=== PATIENT | male | born 1945 | race Caucasian/White ===

== ENCOUNTER 2021-10-13 11:27 | Outpatient (CLI) | payer MEDICARE, OTHER, SELFPAY ==
--- NOTE | 2021-10-13 11:47 | CT_ITS ---
WS: [id number] Exam: CT angio chest PE protcl [id number] Date/Time of Exam: 10/13/2021 11:54 AM Reason For Exam: SYNCOPE DLP: 810.[address] scans at [facility] use at least one of these dose optimization techniques: automated e xposure control; mA and/or kV adjustment per patient size (includes targeted exams where dose is matc hed to clinical indication); or iterative reconstruction. Comparison 08/02/2017. No sign of acute PE. The thoracic aorta is normal in caliber. No mediastinal or hilar lymphadenopathy . No pleural or pericardial effusion.2 the lungs are clear and fully expanded. The airway is patent. No destructive bone changes. The chest wall is intact. Atrophy of the left pectoralis muscle. CT sect ions the upper abdomen are unremarkable. CT/CT angio chest PE protcl [id number] IMPRESSION: 1. No sign of acute PE or other significant finding in the chest.
[2021-10-13 12:17] LABS: Blood Urea Nitrogen 9 mg/dL (8-23)
[2021-10-13] MEDS: iohexol 350 mg/mL 100 mL Btl IV (16:25)
== END 2021-10-13 11:28 | disposition home or self-care (01) ==
PROVIDERS: PCP Family Medicine; Visit Provider Family Medicine
DX: R55 Syncope and collapse (principal)
CPT/HCPCS: 71275; 82565; 84520; Q9967

== ENCOUNTER 2022-05-13 06:47 | Outpatient (CLI) | payer MEDICARE, OTHER, SELFPAY ==
--- NOTE | 2022-05-13 07:20 | MR_ITS ---
WS: [id number] MRI LUMBAR SPINE NONCONTRAST HISTORY: LUMBAR BACK PAIN W/RADICULOPATHY, low back and LEFT hip pain for years. COMPARISON: None available. TECHNIQUE: Sagittal and axial multisequence imaging is submitted. Mild diffuse thoracic and cervical spondylitic changes with disc disease. No cord compression. Very mild straightening of the normal lumbar lordosis. There is a small amount of reactive marrow scotty ma within the adjacent endplates of L1 and L2. Disc spaces are moderately narrowed throughout. No lumbar spine fracture. Conus terminates normally at L1. L1-L2: Mild annular disc bulging and osteophytic ridging. No stenosis. L2-L3: Mild annular disc bulging and osteophytic ridging. Asymmetric facet joint arthritis, most sign ificant on the LEFT with slight encroachment into the LEFT lateral thecal sac and foramen. Mild LEFT foraminal stenosis. L3-L4: Mild annular disc bulge with encroachment upon the ventral thecal sac. There is slight contact on the traversing L4 nerve roots but no high-grade stenosis. Moderate ligamentum flavum and facet ar thritis. Mild bilateral foraminal stenosis. L4-L5: Mild annular disc bulging with a very shallow central disc protrusion. Moderate facet joint ar thritis. Mild bilateral foraminal stenosis. L5-S1: Mild bilateral facet joint arthritis. Mild osteophytic ridging around the vertebral bodies enc roaching into the thecal sac. There is a small osteophyte contacting the RIGHT exiting L5 nerve root. Mild bilateral foraminal stenosis. Several cysts associated with the LEFT kidney. Largest incompletely visualized measures at least 6.4 x 5.2 cm. MR/MR lumbar spine wo con* [id number] IMPRESSION: 1. Multilevel moderate disc space narrowing throughout. 2. No high-grade central or foraminal stenosis. 3. Significant facet joint arthritis on the LEFT at L2-3 with slight encroachm ent into the LEFT lateral thecal sac with only mild LEFT foraminal stenosis. 4. Mild bilateral foraminal stenosis from L3-4 to L5-S1.
== END 2022-05-13 06:48 | disposition home or self-care (01) ==
LOC: RAD 06:47
PROVIDERS: PCP Family Medicine; Visit Provider Family Medicine
DX: M54.16 Radiculopathy, lumbar region (principal); M25.552 Pain in left hip; M48.061 Spinal stenosis, lumbar region without neurogenic claudication; M48.07 Spinal stenosis, lumbosacral region; M47.816 Spondylosis without myelopathy or radiculopathy, lumbar region
CPT/HCPCS: 72148

== ENCOUNTER 2022-09-28 08:43 | Outpatient (CLI) | payer MEDICARE, OTHER, SELFPAY ==
--- NOTE | 2022-09-28 09:02 | MM_ITS ---
WS: [id number] Bilateral diagnostic 3D tomosynthesis digital mammogram, 09/28/2022 Clinical Data: LEFT BREAST LUMP Comparison: Bilateral mammogram, 12/02/2008. Findings: The right breast is normal. The left breast shows slightly increased tissue density compared to the r ight. However the tissue density has diminished greatly compared to the prior mammogram. There is a m arker over the site of the sensitive region. There are no spiculated masses or clustered calcificatio ns. There are no secondary signs of carcinoma. MM/[place] [id number] Impression: 1. Negative right breast mammogram. 2. Slightly increased tissue in the left breast but it has diminished compared to 14 years ago. 3. Left breast ultrasound will be performed. BIRADS: 2-Benign FOLLOW UP: See Report The CAD drawing checker was used.
--- NOTE | 2022-09-28 09:02 | US_ITS ---
WS: [id number] Left breast ultrasound, 09/28/2022 Clinical Data: LUMP LT BREAST Comparison: Left breast ultrasound, 12/02/2008. Findings: No spiculated masses or clustered calcifications are seen. There are no secondary signs of carcinoma. Only normal tissue could be seen. The ultrasound was localized 5 cm from the nipple at the site of t he possible nodule. US/US breast LT limited* [id number] Impression: Negative left breast ultrasound and clinical follow-up is recommended. BIRADS: 1-Negative FOLLOW UP: See Report
== END 2022-09-28 08:44 | disposition home or self-care (01) ==
LOC: RAD 08:48
PROVIDERS: PCP Family Medicine; Visit Provider Family Medicine
DX: N63.25 Unspecified lump in the left breast, overlapping quadrants (principal)
CPT/HCPCS: 76642; 77062; G0279

== ENCOUNTER → 2024-11-08 10:26 | Outpatient (BNVA) | payer MEDICARE, OTHER, SELFPAY | PROVIDERS: PCP Family Medicine; Visit Provider Family Medicine | DX: M54.16 Radiculopathy, lumbar region (principal); E03.9 Hypothyroidism, unspecified; Z00.00 Encounter for general adult medical examination without abnormal findings; R53.83 Other fatigue; Z79.01 Long term (current) use of anticoagulants | CPT/HCPCS: 80053; 80061; 82607; 84443; 85025 ==

== ENCOUNTER 2024-11-17 08:25 | Observation (INO) | payer MEDICARE, OTHER, SELFPAY ==
[2024-11-17] VITALS (36 sets, daily range): BP systolic 134–155; BP diastolic 74–100; PULSE 69–88; RESP 15–25; TEMP 36.7–36.9; O2SAT 91–99; BMI 32.2
--- NOTE | 2024-11-17 08:50 | CTR_ITS ---
PROCEDURE INFORMATION: Exam: CT Head Without Contrast Exam date and time: 11/17/2024 8:57 AM Age: 79 years old Clinical indication: Injury or trauma; Fall; Blunt trauma (contusions or hematomas); Additional info: Closed head injury, trauma TECHNIQUE: Imaging protocol: Computed tomography of the head without contrast. Radiation optimization: All CT scans at this facility use at least one of these dose optimization techniques: automated exposure control; mA and/or kV adjustment per patient size (includes targeted exams where dose is matched to clinical indication); or iterative reconstruction. COMPARISON: No relevant prior studies available. RADIATION DOSE METRICS: Total DLP (mGy-cm): 1125 FINDINGS: Brain: Mild parenchymal volume loss. Subcortical hypodensity, nonspecific, but likely to be chronic small vessel ischemic change in a patient of this age group. Cerebral ventricles: No ventriculomegaly. Paranasal sinuses: Visualized sinuses are unremarkable. No fluid levels. Mastoid air cells: Visualized mastoid air cells are well aerated. Bones: Unremarkable. No acute fracture. Soft tissues: Unremarkable. Vasculature: Intracranial atherosclerotic calcifications. Lpji-slxeebs-dshb-right MCA atherosclerotic calcification. CT/CT head wo con* [id number] IMPRESSION: No acute intracranial abnormality.
--- NOTE | 2024-11-17 10:17 | XRR_ITS ---
PROCEDURE INFORMATION: Exam: XR Chest Exam date and time: 11/17/2024 10:25 AM Age: 79 years old Clinical indication: Cough and dyspnea; Additional info: Dyspnea/cough TECHNIQUE: Imaging protocol: Radiologic exam of the chest. Views: 1 view. COMPARISON: CT angio chest PE protcl [id number] 10/13/2021 12:02 PM FINDINGS: Lungs: Mild hypoinflation. No focal consolidation. Pleural spaces: Unremarkable. No pleural effusion. No pneumothorax. Heart/Mediastinum: Cardiomegaly. Vasculature: Tortuous calcified aorta. Bones/joints: Degenerative change of the visualized thoracic spine and bilateral shoulders. XR/XR chest 1V portable [id number] IMPRESSION: No acute cardiopulmonary findings.
--- NOTE | 2024-11-17 10:17 | ECG_ITS ---
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 Measurements Intervals [place] Rate: 67 P: 77 CO: 194 QRS: 34 QRSD: 108 T: 44 QT: 423 QTc: 449 Interpretive Statements SINUS RHYTHM NONSPECIFIC T-WAVE ABNORMALITY Compared to ECG 08/02/2017 17:07:41 T-wave abnormality now present Electronically Signed On 11-17-2024 22:59:47 READING SPECIALIST by Juan Antonio Mckeon M.D. [email or web address]
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
--- NOTE | 2024-11-17 11:26 | ECG_ITS ---
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 Measurements Intervals [place] Rate: 68 P: 0 SC: 0 QRS: 47 QRSD: 105 T: 53 QT: 383 QTc: 409 Interpretive Statements SUPRAVENTRICULAR RHYTHM MODERATE ST DEPRESSION [0.05+ mV ST DEPRESSION] Compared to ECG 08/02/2017 17:07:41 Supraventricular rhythm now present ST (T wave) deviation now present Sinus rhythm no longer present Electronically Signed On 11-17-2024 23:22:33 EARLY CHILDHOOD COORDINATOR by Juan Antonio Mckeon M.D. [id number]
[2024-11-17 11:31] LABS: Basophils % 0.8 %; Eosinophils % 0.8 %; Hematocrit 51.6 % (37-53); Lymphocytes # 1.3 10^3/uL (0.8-4.8); Lymphocytes % 26.2 %; Mean Corpuscular HGB Conc 33.7 g/dL (30-55); Mean Corpuscular Hemoglobin 30.5 pg (27-33); Mean Corpuscular Volume 90.5 fl (82-101); Mean Platelet Volume 9.5 fL (7.4-10.4); Monocytes # 0.6 10^3/uL (0.2-0.9); Monocytes % 11.5 %; Neutrophils # 3.01 10^3/uL (1.8-7.7); Neutrophils % 60.5 %; Nucleated Red Blood Cells % 0 %; Platelet Count 184 10^3/cmm (157-399); Red Cell Distribution Width 12.6 % (12.1-15.1); White Blood Count 4.97 10^3/uL (3.29-11.43)
[2024-11-17 11:36] LABS: Erythrocyte Sedimentation Rate 4 mm/hr (0-10)
[2024-11-17 11:52] LABS: Troponin(5th) Baseline 13 ng/L (0-15)
[2024-11-17 11:56] LABS: Alanine Aminotransferase 26 U/L (0-41); Albumin Level 4.5 g/dL (3.5-5.2); Alkaline Phosphatase 78 U/L (40-130); Anion Gap 16.4 (5-19); Aspartate Amino Transferase 25 U/L (0-40); Blood Urea Nitrogen 11 mg/dL (8-23); C Reactive Protein 5.5 mg/L (0.0-4.9); Calcium 9.6 mg/dL (8.5-10.5); Carbon Dioxide 24 mmol/L (22-29); Chloride 101 mmol/L (98-107); Creatinine Clr Calc Pharmacy 106.6524; Glucose 103 mg/dL (65-115); Osmolality Calculated 284 mOsm/kg (285-295); Potassium 4.4 mmol/L (3.5-5.1); Sodium 137 mmol/L (136-145); Total Bilirubin 1.6 mg/dL (0.15-1.2); Total Protein 6.5 g/dL (6.6-8.7)
[2024-11-17 11:58] LABS: Ammonia 22 umol/L (16-60)
[2024-11-17 12:02] LABS: Procalcitonin 0.06 ng/mL (0-0.5)
--- NOTE | 2024-11-17 12:07 | PM.HP ---
Providers/Chief Complaint Admitting Physician: Florentin Sherman MD Primary Care Provider: Simeon Nick DO Chief Complaint: post fall History of Present Illness Donn Zuleta is a 79 year old male with a past medical history of prostate cancer, status post radical prostatectomy, history of anal sphincterectomy with an artificial sphincter, left hip traumatic hematoma with subcutaneous mass, history of tularemia, history of pulmonary embolism degenerative disc disease who presents [facility] due to shortness of breath, weakness, fatigue, syncopal-like symptoms.The patient, an elderly individual, presented to the hospital with a headache rated as a 7 out of 10 on the pain scale, following a fall. The family doctor advised hospital evaluation if the patient experienced a headache or confusion due to concerns about a potential brain bleed. The patient reported that a recent CT scan showed no bleeding. The fall occurred while walking with a stick and a dog, during which the patient experienced a loss of control over their legs, leading to a collapse without losing consciousness. The patient has experienced a total lack of energy, which has progressively worsened, and has fallen three times in the last few months. 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 The patient has undergone various pain management treatments, including injections and femoral nerve blockage, but no major back or hip surgeries. The patient has a history of prostate cancer treated with robotic surgery and an artificial sphincter placement, resulting in severe incontinence. The patient denies chest pain, SOB, smoking, alcohol, and drug use. Patient reports that whenever he exerts himself up his driveway, he has these episodes of which he always has presyncopal like symptoms but never really passes out, but typically occurs with exertion, episodes have been coming more frequently this is why he fell. When he was exerting himself he had this episode of presyncopal symptom, shortness of breath resulting in a fall. No chest pain, no nausea, no vomiting, no diaphoresis. Review of Systems Const: Denies: fever(s) Card: Denies: chest pain Resp: Denies: dyspnea GI: Denies: abdominal pain Neuro: Denies: headache(s), numbness in extremities or weakness in extremities Medications/Allergies Home Medications Medication Instructions Recorded Confirmed Last Taken Type apixaban 5 mg tablet (Eliquis) 5 mg PO BID #180 tabs 04/09/24 11/17/24 11/17/24 Rx atorvastatin 10 mg tablet 10 mg PO DAILY #90 tabs 04/16/24 11/17/24 11/17/24 Rx hydrocodone 5 mg-acetaminophen 325 1 tab PO BID PRN pain 4 weeks #60 11/08/24 11/17/24 Unknown Rx mg tablet tabs Allergies Allergy/AdvReac Type Severity Reaction Status Date / Time No Known Allergies Allergy Unverified 11/15/24 12:22 PFSH Acute PFSH: Medical History (Updated 11/17/24 @ 12:18 by Florentin Sherman MD) Urinary incontinence History of pulmonary embolism Lumbar radiculopathy, chronic Surgical History (Updated 11/17/24 @ 12:16 by Florentin Sherman MD) History of prostatectomy Social History (Updated 11/17/24 @ 12:17 by Florentin Sherman MD) Smoking and tobacco/nicotine status: never used tobacco/nicotine Alcohol intake: never Substance/Drug Use: never Vitals/I&O/Wt Last Vital Signs Temp 98.0 F 11/17/24 08:36 Pulse 76 11/17/24 11:49 Resp 17 11/17/24 08:36 BP 148/74 11/17/24 11:49 Pulse Ox 99 11/17/24 11:49 O2 Del Method Room Air 11/17/24 09:44 Weight last 48 hrs Weight 117.027 kg Physical Exam Const: COMMON NORMALS: no acute distress and patient oriented x3 OTHER: Left temporal, superficial bruising, area of bruising and scarring from fall HENMT: COMMON NORMALS: normocephalic HEAD & SCALP: normocephalic Eye: COMMON NORMALS: Equal, round and reactive pupils present Neck/C-Spine: COMMON NORMALS: no JVD Resp: COMMON NORMALS: normal respiratory effort, No retractions, No use of accessory muscles and clear to auscultation bilaterally AUSCULTATION: clear to auscultation bilaterally Cardio: COMMON NORMALS: no JVD, regular rate, regular rhythm, S1 normal heart sound present and S2 normal heart sound present RATE: regular rate RHYTHM: regular rhythm HEART SOUNDS: S1 normal heart sound present and S2 normal heart sound present GI: COMMON NORMALS: Normal to inspection, nondistended, normoactive bowel sounds present, Soft to palpation, non-tender, No hepatosplenomegaly present, no masses and no bruits PALPATION: Yes Soft to palpation and Yes No hepatosplenomegaly present Extremity: COMMON NORMALS: no calf tenderness and no pedal edema Neuro: COMMON NORMALS: patient oriented x3, CN's II-XII intact bilaterally and moves all extremities Psych: COMMON NORMALS: mental status grossly normal Data 11/17/24 11:16 11/17/24 11:16 A&P Assessment and plan (1) Pre-syncope: Plan Presyncope -neurocheck, nih, ptot ? With weakness, fatigue, shortness of breath, ? Plan ? CBC, CMP, troponin series, telemetry, cardiac echo ? Does have hyperbilirubinemia, fractionated bilirubin, GGT, lipase ? Does have erythrocytosis, UA, EPO levels ? Obtain a UA, history of chronic incontinence -ct chest abdomen and pelvis ? Eliquis for DVT prophylaxis -full code Attestations Medical Necessity Statement*: Patient requires hospitalization, outpatient with observation , presyncope Diagnoses Pre-syncope R55
--- NOTE | 2024-11-17 12:16 | USCV_ITS ---
Donn Zuleta Age: 79 Gender: M : 1945 Exam Date: 11/17/2024 15:59 Ordering Phys: Florentin Sherman MD Technologist: Clif Patterson Exam Location: [facility] [place] Indication: syncope BP: 148 / 74 HR: 68 Rhythm: Sinus Technical Quality: Adequate MEASUREMENTS (Male / Female) Normal Values 2D ECHO LV Diastolic Diameter PLAX 4.1 cm 4.2 - 5.9 / 3.9 - 5.3 cm IVS Diastolic Thickness 1.2 cm 0.6 - 1.0 / 0.6 - 0.9 cm IVS Systolic Thickness 1.2 cm LVPW Diastolic Thickness 1.7 cm 0.6 - 1.0 / 0.6 - 0.9 cm LVPW Systolic Thickness 2.8 cm LVOT Diameter 2.0 cm LV Ejection Fraction 2D Teich 79.2 % LV Ejection Fraction MOD 4C 74.1 % LV Ejection Fraction MOD 2C 65.3 % LV Ejection Fraction 2C AL 65.0 % LA Diameter 3.2 cm RA Systolic Volume 4C AL 78.9 ml RA Systolic Volume 4C MOD 85.1 ml LA Sys Volume AL 63.9 cm cubed LA Sys Volume Index AL 25.4 cm cubed/m squared Aorta at Sinotubular Diameter 3.0 cm M-MODE LA Ao Ratio MM 1.1 AV Cusp Separation MM 1.5 cm DOPPLER AV Peak Velocity 98.0 cm/s LVOT Peak Velocity 83.0 cm/s AV Area Cont Eq vti 2.6 cm squared AV Area Cont Eq pk 2.7 cm squared MV Peak Velocity 82.0 cm/s MV Area PHT 4.7 cm squared Mitral E to A Ratio 0.7 TV Peak Velocity 201.0 cm/s TR Peak Velocity 202.0 cm/s TR Peak Gradient 16.3 mmHg TR Mean Velocity 154.0 cm/s TR Mean Gradient 10.3 mmHg TR Velocity Time Integral 49.8 cm PV Peak Velocity 125.7 cm/s RV Ejection Time 0.3 s FINDINGS Left Ventricle Left ventricle is normal in size. LV systolic function is normal with EF of 55-60%. No regional wall motion abnormalities are seen. Grade 1 diastolic dysfunction Right Ventricle Normal in size and function Right Atrium Dilated Left Atrium Normal in size Mitral Valve Structurally normal mitral valve. Trace mitral regurgitation Aortic Valve Structurally normal aortic valve. No significant stenosis. Trace aortic regurgitation Tricuspid Valve Insufficient TR jet to calculate RVSP Pulmonic Valve Not well visualized Pericardium Normal Aorta Normal in size IVC Not well visualized CONCLUSIONS LV systolic function is normal with EF of 55-60% Grade 1 diastolic dysfunction Right atrial dilation Trace mitral regurgitation Trace aortic regurgitation Juan Antonio Mckeon MD (Electronically Signed) Final Date: 18 November 2024 09:47 S
--- NOTE | 2024-11-17 12:20 | CTR_ITS ---
PROCEDURE INFORMATION: Exam: CT Chest Without Contrast; Diagnostic Exam date and time: 11/17/2024 2:35 PM Age: 79 years old Clinical indication: Other: Weakness, fatigue, erythrocytosis TECHNIQUE: Imaging protocol: Diagnostic computed tomography of the chest without contrast. Radiation optimization: All CT scans at this facility use at least one of these dose optimization techniques: automated exposure control; mA and/or kV adjustment per patient size (includes targeted exams where dose is matched to clinical indication); or iterative reconstruction. COMPARISON: CT angio chest PE protcl [id number] 10/13/2021 12:02 PM RADIATION DOSE METRICS: Total DLP (mGy-cm): 1219.99 FINDINGS: Lungs: No focal consolidation. 5 mm solid nodule at the left upper lobe (series 4, image 43). Calcified granuloma. Dependent atelectasis. Pleural spaces: Unremarkable. No pneumothorax. No pleural effusion. Heart: Unremarkable. No cardiomegaly. No pericardial effusion. Coronary arteries: Coronary artery calcifications. Lymph nodes: . Calcified hilar lymph nodes on the left. Vasculature: Atherosclerotic calcifications of the thoracic aorta. Bones/joints: Unremarkable. No acute fracture. Soft tissues: Unremarkable. PROCEDURE INFORMATION: Exam: CT Abdomen And Pelvis Without Contrast Exam date and time: 11/17/2024 2:35 PM Age: 79 years old Clinical indication: Other: Weakness, fatigue, erythrocytosis TECHNIQUE: Imaging protocol: Computed tomography of the abdomen and pelvis without contrast. Radiation optimization: All CT scans at this facility use at least one of these dose optimization techniques: automated exposure control; mA and/or kV adjustment per patient size (includes targeted exams where dose is matched to clinical indication); or iterative reconstruction. COMPARISON: MR lumbar spine wo con* [id number] 05/13/2022 7:43 AM RADIATION DOSE METRICS: Total DLP (mGy-cm): 1219.99 FINDINGS: Liver: Hepatic steatosis. Gallbladder and biliary ducts: Normal. No calcified stones. No ductal dilation. Pancreas: Normal. No ductal dilation. Spleen: Large calcification at the posterior spleen. Adrenal glands: Normal. No mass. Kidneys and ureters: Normal. No hydronephrosis. Stomach and bowel: Unremarkable. No obstruction. No mucosal thickening. Appendix: No evidence of appendicitis. Intraperitoneal space: Unremarkable. No free air. No significant fluid collection. Vasculature: Unremarkable. No abdominal aortic aneurysm. Lymph nodes: Unremarkable. No enlarged lymph nodes. Urinary bladder: Unremarkable as visualized. Reproductive: Status post prostatectomy. Bones/joints: Diffuse idiopathic skeletal hyperostosis. Diffuse degenerative disease of the thoracolumbar spine. Soft tissues: Unremarkable. CT/[place] [id number] IMPRESSION: 1. No acute cardiopulmonary findings. 2. Left upper lobe solid nodule measuring 5 mm. In a low risk individual no routine follow-up is required. In a high-risk individual optional CT at 12 months can be considered. 3. Coronary artery calcifications. IMPRESSION: 1. No acute abdominopelvic abnormality. 2. Hepatic steatosis. 3. Findings of prior granulomatous disease.
[2024-11-17 13:01] LABS: Estmated Average Glucose 120; Gamma Glutamyl Transferase 24 U/L (8-61); Hemoglobin A1C 5.8 % (4.0-6.0); Total Bilirubin 1.5 mg/dL (0.15-1.2)
[2024-11-17 13:10] LABS: Lipase 28 U/L (13-60); NT Pro B Type Natriuretic Pept < 36 pg/mL (0-450)
[2024-11-17] MEDS: pantoprazole 40 mg SDV IVP (13:49)
[2024-11-17] MEDS: aspirin 81 mg EC Tablet PO (13:49)
--- NOTE | 2024-11-17 13:59 | PC.OT ---
Patient is indep in all adls,was seen ambulating n the [facility] independently. discussd with nursing and PT STAFF. HE willnot need occupatonal therapy services at this time. OT EVAL NOT INDICATED AT THIS TIME
[2024-11-17 14:25] LABS: Troponin 5 2HR 11.08 ng/L (0-15); Troponin 5 2HR Delta -1.92 ABS# (0-10)
--- NOTE | 2024-11-17 17:18 | ECG_ITS ---
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 Measurements Intervals [place] Rate: 68 P: 54 WI: 209 QRS: 20 QRSD: 111 T: 24 QT: 395 QTc: 423 Interpretive Statements SINUS RHYTHM INCOMPLETE RIGHT BUNDLE BRANCH BLOCK [90+ ms QRS DURATION, TERMINAL R IN V1/V2, 40+ ms S IN I/aVL/V4/V5/V6] Compared to ECG 11/17/2024 11:38:14 Incomplete right bundle-branch block now present T-wave abnormality no longer present Electronically Signed On 11-17-2024 23:20:58 COMMUNICATIONS STRATEGIST by Juan Antonio Mckeon M.D. [email or web address]
[2024-11-17] MEDS: apixaban 5 mg Tablet PO (17:49)
[2024-11-17 18:41] LABS: Bilirubin Urine Negative (Negative); Blood Urine Negative (Negative); Glucose Urine UA Negative (Normal); Ketones Urine Negative (Negative); Leukocyte Esterase Urine Negative (Negative); Nitrate Urine Negative (Negative); Protein Urine Negative (Negative); Specific Gravity, Urine 1.007 (1.005-1.030); Urine Appearance Clear (CLEAR); Urine Color Yellow (Yellow); Urobilinogen Urine 0.2 mg/dL (Negative)
[2024-11-17 18:43] LABS: Add Urine Microscopic? YES; Bacteria Urine None Seen /hpf; Hyaline Casts Urine 0-4 /lpf; RBC Urine 0-2 /hpf (0-2); Squamous Epithelial Cell Urine 0-5 /hpf (0-5); WBC Urine 0-5 /hpf (0-5)
[2024-11-17 18:52] LABS: Troponin 5 6HR 11.95 ng/L (0-15)
[2024-11-17 18:55] LABS: Troponin 5 6HR Delta -1.05 ng/L (0-12)
[2024-11-18] VITALS (7 sets, daily range): BP systolic 129–156; BP diastolic 80–95; PULSE 73–120; RESP 16–20; TEMP 36.9; O2SAT 92–95
[2024-11-18 02:49] LABS: Basophils # 0.1 10^3/uL (0.0-0.1); Basophils % 1.2 %; Eosinophils # 0.1 10^3/uL (0.0-0.8); Eosinophils % 1.6 %; Hematocrit 49.4 % (37-53); Lymphocytes # 1.3 10^3/uL (0.8-4.8); Lymphocytes % 25.5 %; Mean Corpuscular HGB Conc 33.6 g/dL (30-55); Mean Corpuscular Volume 92.3 fl (82-101); Mean Platelet Volume 10.2 fL (7.4-10.4); Monocytes # 0.5 10^3/uL (0.2-0.9); Monocytes % 9.7 %; Neutrophils # 3.12 10^3/uL (1.8-7.7); Neutrophils % 61.8 %; Nucleated Red Blood Cells % 0 %; Platelet Count 162 10^3/cmm (157-399); Red Blood Count 5.35 10^6/uL (3.85-5.65); Red Cell Distribution Width 12.5 % (12.1-15.1); White Blood Count 5.05 10^3/uL (3.29-11.43)
[2024-11-18 03:11] LABS: Albumin Level 3.8 g/dL (3.5-5.2); Alkaline Phosphatase 68 U/L (40-130); Blood Urea Nitrogen 11 mg/dL (8-23); Calcium 9.1 mg/dL (8.5-10.5); Carbon Dioxide 24 mmol/L (22-29); Chloride 102 mmol/L (98-107); Creatinine Clr Calc Pharmacy 106.6524; Globulin 2.4 g/dL (1.3-4.6); Glucose 101 mg/dL (65-115); Osmolality Calculated 282 mOsm/kg (285-295); Sodium 136 mmol/L (136-145); Total Bilirubin 1.6 mg/dL (0.15-1.2); Total Protein 6.2 g/dL (6.6-8.7)
[2024-11-18 03:14] LABS: Alanine Aminotransferase 25 U/L (0-41); Anion Gap 14.3 (5-19); Aspartate Amino Transferase 28 U/L (0-40); Potassium 4.3 mmol/L (3.5-5.1)
--- NOTE | 2024-11-18 08:26 | P.CONIM_ITS ---
Providers/Reason For Consult 2 Consulting Physician/Specialty*: Juan Antonio Mckeon MD/ Cardiology Reason for Consult*: Falls Requesting Physician: Dr Fuller Attending Physician: Florentin Sherman MD Primary Care Provider: Simeon Nick DO History of Present Illness History of Present Illness Donn Zuleta is a 79 year old male with past medical history of PE who was admitted to hospital after having falls. He says he has not lost consciousness however he feels very weak in the legs and has had at least 3 falls recently. No chest pain. Has some shortness of breath. Blood pressure is controlled.ECHO shows normal LV systolic function. Review of Systems 2 Const: Denies: fever(s) or chills Card: Reports: dyspnea on exertion; Denies: chest pain Resp: Denies: dyspnea GI: Denies: abdominal pain : Denies: dysuria, urinary frequency or urinary urgency Musc: Denies: neck pain or back pain Skin/Breast: Denies: rash Medications/Allergies Home Medications Medication Instructions Recorded Confirmed Last Taken Type apixaban 5 mg tablet (Eliquis) 5 mg PO BID #180 tabs 04/09/24 11/20/24 11/17/24 Rx atorvastatin 10 mg tablet 10 mg PO DAILY #90 tabs 04/16/24 11/20/24 11/17/24 Rx cyclobenzaprine 10 mg tablet 10 mg PO TID 11/20/24 11/20/24 Unknown History Allergies Allergy/AdvReac Type Severity Reaction Status Date / Time No Known Allergies Allergy Verified 11/20/24 07:58 Current Medications Generic Name Dose Route Start Last Admin Trade Name Freq PRN Reason Stop Dose Admin Apixaban 5 mg 11/17/24 18:00 11/17/24 17:49 Apixaban 5 Mg Tablet PO 5 mg BID CORIN Administration Aspirin 81 mg 11/17/24 12:16 11/17/24 13:49 Aspirin 81 Mg Ec Tablet PO 81 mg DAILY CORIN Administration Pantoprazole Sodium 40 mg 11/17/24 12:16 11/17/24 13:49 Pantoprazole 40 Mg Sdv IVP 40 mg Q24H CORIN Administration PFSH Acute 2 PFSH: Medical History Urinary incontinence History of pulmonary embolism Lumbar radiculopathy, chronic Surgical History History of prostatectomy Social History Smoking and tobacco/nicotine status: former use of tobacco/nicotine Alcohol intake: never Substance/Drug Use: never Vitals/I&O/Wt Last Vital Signs Temp 98.4 F 11/18/24 08:00 Pulse 91 11/18/24 08:00 Resp 18 11/18/24 08:00 BP 143/95 11/18/24 08:00 Pulse Ox 95 11/18/24 08:00 O2 Del Method Room Air 11/18/24 08:00 Weight last 48 hrs Weight 258 lb 6.4 oz Weight 258 lb Weight 258 lb Physical Exam 2 Narrative: GENERAL: Patient is alert, awake and oriented x3. [] NECK: No jugular vein distension. [] HEENT: No cyanosis. No icterus. No pallor. [] HEART: Regular S1 and S2. No murmur, rub or gallop. [] LUNGS: Clear to auscultate bilaterally. [] CENTRAL NERVOUS SYSTEM: Grossly nonfocal. [] EXTREMITIES: Lower extremities with 1+ edema bilaterally Data 11/18/24 02:00 11/18/24 02:00 A&P Assessment and plan (1) Pre-syncope: Plan No evidence of arrhythmias/pauses telemetry. EKG shows normal sinus rhythm with incomplete right branch block. Will recommend ordering event monitor as outpatient. May need stress test. Patient is going to follow up with neurology. Outpatient cardiology follow up. Consult Attestations 2 Medical Necessity Statement: Care expected to cross 2 midnights. Coding Level of Care Code Acute Code for Chg Fwd Diagnoses Pre-syncope R55
[2024-11-18] MEDS: apixaban 5 mg Tablet PO (08:56)
[2024-11-18] MEDS: aspirin 81 mg EC Tablet PO (08:56)
--- NOTE | 2024-11-18 10:49 | USR_ITS ---
PROCEDURE INFORMATION: Exam: US Duplex Bilateral Extracranial Arteries; Complete; Carotid Arteries Exam date and time: 11/18/2024 11:17 AM Age: 79 years old Clinical indication: Syncope and collapse; Additional info: Presyncope TECHNIQUE: Imaging protocol: Real-time duplex ultrasound scan of the bilateral extracranial arteries combining pittman scale, color Doppler and spectral waveform analysis with image documentation. Complete exam. Exam focused on the carotid arteries. COMPARISON: CT head wo con* [id number] 11/17/2024 8:57 AM FINDINGS: Right common carotid artery: Unremarkable. No occlusion or stenosis. Waveforms are normal. Right internal carotid artery: Unremarkable. No occlusion or stenosis. Waveforms are normal. Right ICA/CCA ratio: Within normal limits measuring 0.9. Right external carotid artery: No stenosis in the origin. Right vertebral artery: Unremarkable. Antegrade flow. Left common carotid artery: Unremarkable. No occlusion or stenosis. Waveforms are normal. Left internal carotid artery: Unremarkable. No occlusion or stenosis. Waveforms are normal. Left ICA/CCA ratio: Within normal limits measuring 0.8. Left external carotid artery: No stenosis in the origin. Left vertebral artery: Unremarkable. Antegrade flow. US/CV carotid duplex BI* [id number] IMPRESSION: No carotid arterial stenosis. REFERENCES: SRU CRITERIA. The degree of internal carotid artery stenosis is based on criteria defined by the Society of Radiologists in Ultrasound (SRU). Normal is no stenosis. Mild is less than 50% stenosis. Moderate is 50-69% stenosis. Severe is greater than 69% stenosis to near occlusion. Near occlusion is a markedly narrowed lumen. Total occlusion is no detectable patent lumen.
--- NOTE | 2024-11-18 10:53 | PM.DCS ---
Discharge Providers Date of Admission: 11/17/24 10:56 Date of Discharge: November 18, 2024 Attending Provider at Admission: Florentin Sherman MD Attending Provider at Discharge: Florentin Sherman MD Primary Care Provider: Simeon Nick DO Diagnoses at Discharge Discharge Diagnosis (1) Pre-syncope: Status: Acute Reason for Visit Reason for Visit: post fall Hospital Course Hospital Course Donn Zuleta is a 79 year old male with a past medical history of prostate cancer, status post radical prostatectomy, history of anal sphincterectomy with an artificial sphincter, left hip traumatic hematoma with subcutaneous mass, history of tularemia, history of pulmonary embolism degenerative disc disease who presents [facility] due to shortness of breath, weakness, fatigue, syncopal-like symptoms.The patient, an elderly individual, presented to the hospital with a headache rated as a 7 out of 10 on the pain scale, following a fall. The family doctor advised hospital evaluation if the patient experienced a headache or confusion due to concerns about a potential brain bleed. The patient reported that a recent CT scan showed no bleeding. The fall occurred while walking with a stick and a dog, during which the patient experienced a loss of control over their legs, leading to a collapse without losing consciousness. The patient has experienced a total lack of energy, which has progressively worsened, and has fallen three times in the last few months. 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 The patient has undergone various pain management treatments, including injections and femoral nerve blockage, but no major back or hip surgeries. The patient has a history of prostate cancer treated with robotic surgery and an artificial sphincter placement, resulting in severe incontinence. The patient denies chest pain, SOB, smoking, alcohol, and drug use. Patient reports that whenever he exerts himself up his driveway, he has these episodes of which he always has presyncopal like symptoms but never really passes out, but typically occurs with exertion, episodes have been coming more frequently this is why he fell. When he was exerting himself he had this episode of presyncopal symptom, shortness of breath resulting in a fall. No chest pain, no nausea, no vomiting, no diaphoresis. Patient was admitted to [facility] for presyncopal symptoms, associate with exertion -CT head no acute findings -See CT chest abdomen pelvis no acute findings -CBC, CMP, electrolytes no acute findings -Cardiac echo CONCLUSIONS LV systolic function is normal with EF of 55-60% Grade 1 diastolic dysfunction Right atrial dilation Trace mitral regurgitation Trace aortic regurgitation -Carotid ultrasound no acute findings -Orthostatics within normal limits -Serial kidneys, short troponins, telemetry monitoring no acute findings -Patient will be discharged with event monitor in place -Follow-up with cardiology stress testing -Patient was advised if he were to have any syncopal symptoms, chest pain or shortness of breath to go to emergency room For patient's polycythemia, UA no blood, follow-up with primary care provider, EPO levels ordered For patient's hyperbilirubinemia, will have patient follow-up with primary care Follow-up with neurology Follow-up with cardiology in 2 weeks Physical Exam Const: COMMON NORMALS: no acute distress and patient oriented x3 Resp: COMMON NORMALS: normal respiratory effort, No retractions, No use of accessory muscles and clear to auscultation bilaterally AUSCULTATION: clear to auscultation bilaterally Cardio: COMMON NORMALS: regular rate, regular rhythm, S1 normal heart sound present and S2 normal heart sound present RATE: regular rate RHYTHM: regular rhythm HEART SOUNDS: S1 normal heart sound present and S2 normal heart sound present GI: COMMON NORMALS: Normal to inspection, nondistended, normoactive bowel sounds present and non-tender Extremity: COMMON NORMALS: no pedal edema Neuro: COMMON NORMALS: patient oriented x3 Psych: COMMON NORMALS: mental status grossly normal Discharge Data Studies Completed and Pending Completed Studies During Hospitalization Category Date Time Status CT chest abdomen pelvis [[place] [id number] Cat Scan 11/17/24 12:20 Completed ] Routine CT head wo con* [id number] Stat Cat Scan 11/17/24 08:50 Completed XR chest 1V portable [id number] Stat Exams 11/17/24 10:17 Completed CV. echo complete* [id number] Routine Ultrasound 11/17/24 12:16 Completed Pending at discharge Category Date Time Status Erythropoietin Stat Lab 11/17/24 11:16 Received Folate Level Routine Lab 11/18/24 10:48 Ordered Vitamin B1(Thiamin) Plas/Ser Routine Lab 11/18/24 10:48 Ordered CV carotid duplex BI* [id number] Routine Ultrasound 11/18/24 10:49 Ordered Radiology Impressions Head CT 11/17/24 08:50 IMPRESSION: No acute intracranial abnormality. Chest X-Ray 11/17/24 10:17 IMPRESSION: No acute cardiopulmonary findings. Chest/Abdomen/Pelvis CT 11/17/24 12:20 IMPRESSION: 1. No acute cardiopulmonary findings. 2. Left upper lobe solid nodule measuring 5 mm. In a low risk individual no routine follow-up is required. In a high-risk individual optional CT at 12 months can be considered. 3. Coronary artery calcifications. IMPRESSION: 1. No acute abdominopelvic abnormality. 2. Hepatic steatosis. 3. Findings of prior granulomatous disease. Laboratory Results WBC 5.05 10^3/uL (3.29-11.43) 11/18/24 02:00 RBC 5.35 10^6/uL (3.85-5.65) 11/18/24 02:00 Hgb 16.60 g/dL (11.27-16.99) 11/18/24 02:00 Hct 49.4 % (37-53) 11/18/24 02:00 MCV 92.3 fl (82-101) 11/18/24 02:00 MCH 31.0 pg (27-33) 11/18/24 02:00 MCHC 33.6 g/dL (30-55) 11/18/24 02:00 RDW 12.5 % (12.1-15.1) 11/18/24 02:00 Plt Count 162 10^3/cmm (157-399) 11/18/24 02:00 MPV 10.2 fL (7.4-10.4) 11/18/24 02:00 Neut % (Auto) 61.8 % 11/18/24 02:00 Lymph % (Auto) 25.5 % 11/18/24 02:00 [place] % (Auto) 9.7 % 11/18/24 02:00 Eos % (Auto) 1.6 % 11/18/24 02:00 Baso % (Auto) 1.2 % 11/18/24 02:00 Neut # (Auto) 3.12 10^3/uL (1.8-7.7) 11/18/24 02:00 Lymph # (Auto) 1.3 10^3/uL (0.8-4.8) 11/18/24 02:00 [place] # (Auto) 0.5 10^3/uL (0.2-0.9) 11/18/24 02:00 Eos # (Auto) 0.1 10^3/uL (0.0-0.8) 11/18/24 02:00 Baso # (Auto) 0.1 10^3/uL (0.0-0.1) 11/18/24 02:00 Nucleated RBC % (auto) 0 % 11/18/24 02:00 Nucleated RBCs # 0.0 /100WBC 11/18/24 02:00 ESR 4 mm/hr (0-10) 11/17/24 11:16 Sodium 136 mmol/L (136-145) 11/18/24 02:00 Potassium 4.3 mmol/L (3.5-5.1) 11/18/24 02:00 Chloride 102 mmol/L (98-107) 11/18/24 02:00 Carbon Dioxide 24 mmol/L (22-29) 11/18/24 02:00 Anion Gap 14.3 (5-19) 11/18/24 02:00 BUN 11 mg/dL (8-23) 11/18/24 02:00 Creatinine 0.7 mg/dL (0.7-1.2) 11/18/24 02:00 GFR Calculation Not Reportable 11/18/24 02:00 Glucose 101 mg/dL (65-115) 11/18/24 02:00 Estimat Average Glucose 120 11/17/24 11:16 Hemoglobin A1c 5.8 % (4.0-6.0) 11/17/24 11:16 Calculated Osmolality 282 mOsm/kg (285-295) L 11/18/24 02:00 Calcium 9.1 mg/dL (8.5-10.5) 11/18/24 02:00 Total Bilirubin 1.6 mg/dL (0.15-1.2) H 11/18/24 02:00 Direct Bilirubin 0.30 mg/dL (0.00-0.30) 11/17/24 11:16 Indirect Bilirubin 1.20 11/17/24 11:16 GGT 24 U/L (8-61) 11/17/24 11:16 AST 28 U/L (0-40) 11/18/24 02:00 ALT 25 U/L (0-41) 11/18/24 02:00 Alkaline Phosphatase 68 U/L (40-130) 11/18/24 02:00 Ammonia 22 umol/L (16-60) 11/17/24 11:16 Troponin T Baseline 13 ng/L (0-15) 11/17/24 11:16 Troponin T 120 Minute 11.08 ng/L (0-15) 11/17/24 13:57 Delta Troponin T -1.92 ABS# (0-10) L 11/17/24 13:57 Troponin T Hi Sens 6Hr 11.95 ng/L (0-15) 11/17/24 18:04 Troponin T Hi Sens 6Hr Delta -1.05 ng/L (0-12) L 11/17/24 18:04 C-Reactive Protein 5.5 mg/L (0.0-4.9) H 11/17/24 11:16 NT-Pro-B Natriuret Pep < 36 pg/mL (0-450) 11/17/24 11:16 Total Protein 6.2 g/dL (6.6-8.7) L 11/18/24 02:00 Albumin 3.8 g/dL (3.5-5.2) 11/18/24 02:00 Globulin 2.4 g/dL (1.3-4.6) 11/18/24 02:00 Lipase 28 U/L (13-60) 11/17/24 11:16 Procalcitonin 0.06 ng/mL (0-0.5) 11/17/24 11:16 Urine Color Yellow (Yellow) 11/17/24 17:24 Urine Appearance Clear (CLEAR) 11/17/24 17:24 Urine pH 6.0 (5-7) 11/17/24 17:24 Ur Specific [place] 1.007 (1.005-1.030) 11/17/24 17:24 Urine Protein Negative (Negative) 11/17/24 17:24 Urine Glucose (UA) Negative (Normal) 11/17/24 17:24 Urine Ketones Negative (Negative) 11/17/24 17:24 Urine Blood Negative (Negative) 11/17/24 17:24 Urine Nitrate Negative (Negative) 11/17/24 17:24 Urine Bilirubin Negative (Negative) 11/17/24 17:24 Urine Urobilinogen 0.2 mg/dL (Negative) 11/17/24 17:24 Ur Leukocyte Esterase Negative (Negative) 11/17/24 17:24 Urine RBC 0-2 /hpf (0-2) 11/17/24 17:24 Urine WBC 0-5 /hpf (0-5) 11/17/24 17:24 Ur Squamous Epith Cells 0-5 /hpf (0-5) 11/17/24 17:24 Amorphous Sediment Not Reportable 11/17/24 17:24 Urine Bacteria None seen /hpf (NONE) 11/17/24 17:24 Hyaline Casts 0-4 /lpf H 11/17/24 17:24 Vitals Last Vital Signs Temp 98.4 F 11/18/24 08:00 Pulse 91 11/18/24 08:00 Resp 18 11/18/24 08:00 BP 143/95 11/18/24 08:00 Pulse Ox 95 11/18/24 08:00 O2 Del Method Room Air 11/18/24 08:00 Discharge Plan Discharge Patient Disposition: Home Condition: Stable Prescriptions: Continued hydrocodone-acetaminophen 5-325 mg tablet 1 tab PO BID PRN (Reason: pain) 28 Days Qty: 60 0RF Eliquis 5 mg tablet 5 mg PO BID Qty: 180 3RF atorvastatin 10 mg tablet 10 mg PO DAILY Qty: 90 3RF Discharge Orders: Discharge Order (Routine); Ordered 11/18/24 Ordered By: Florentin Sherman Other Ambulatory Orders: MCT/Event Monitor 30 Days (Routine) Timeframe: 1 Day Facility: [facility] - Location: Radiology Ordered By: Florentin Sherman Referrals: Sari Smith FNP [Nurse Practitioner] - 1-3 days (We have notified your physician's clinic of the need for a follow-up appointment to be scheduled. If you have not heard from them within the next 2 business days, please call them directly. ) Simeon Nick, [Primary Care Provider] - 1-3 days ([facility] call clinic to schedule this appointment. ) Discharge Diet: Cardiac Discharge Activity: Resume usual activity Patient Instructions: Chest Pain (DC), Near Syncope (DC), Chest Pain Stoplight, Opioid Safety Activity Restrictions/Additional Instructions: - Please follow-up with cardiology in 1 to 3 days for stress testing -Event monitor ordered follow-up with cardiology in 30 days for results -Given episodes of chest pain, shortness of breath, syncopal episodes please come back to the hospital -Please ambulate with care -For your polycythemia, please follow-up with primary care to monitor hemoglobin as outpatient -For your hyperbilirubinemia, 1.6 follow-up with primary care for monitoring as outpatient -Your CT scan does show hepatic steatosis please follow-up with primary care provider for monitoring liver function as outpatient -You have a left upper lobe solid pulmonary nodule 5 mm, needs to be followed up through primary care Discharge Attestations Time Spent in Discharge Care*: greater than 30 min Quality Metrics Clinical Quality Measures [ No reported AMI, CVA or VTE this stay] Coding Level of Care Code 14578 Total time (in minutes) for Discharge: 45 Diagnoses Pre-syncope R55
[2024-11-18 11:31] LABS: Folate Level 16.6 ng/mL (4.5-32.2)
--- NOTE | 2024-11-18 13:17 | PC.NURSE ---
discharge instructions given and explained.pt verb understanding of instructions.discharged via w/c to exit at this time.spouse to drive pt home
[2024-11-23 13:21] LABS: Vitamin B1(Thiamin) Plas/Ser 11 nmol/L (8-30)
[2024-11-26 12:36] LABS: Erythropoietin 17.3 mIU/mL (2.6-18.5)
== END 2024-11-18 13:18 | disposition home or self-care (01) ==
LOC: ER 10:21 → CSU 11:42
PROVIDERS: Admitting Provider Family Medicine; Emergency Provider Family Medicine; PCP Family Medicine; Visit Provider Family Medicine
DX: R55 Syncope and collapse (principal); R29.6 Repeated falls; R53.1 Weakness; E80.6 Other disorders of bilirubin metabolism; R53.83 Other fatigue; R91.1 Solitary pulmonary nodule; M54.16 Radiculopathy, lumbar region; D75.1 Secondary polycythemia; K76.0 Fatty (change of) liver, not elsewhere classified; R06.09 Other forms of dyspnea; S00.81XA Abrasion of other part of head, initial encounter; Z79.899 Other long term (current) drug therapy; Z79.01 Long term (current) use of anticoagulants; Z86.718 Personal history of other venous thrombosis and embolism; Z85.46 Personal history of malignant neoplasm of prostate; Z86.711 Personal history of pulmonary embolism; Z90.89 Acquired absence of other organs
CPT/HCPCS: 36415; 70450; 71045; 71250; 74176; 80053; 81001; 82140; 82247; 82248; 82668; 82746; 82977; 83036; 83690; 83880; 84145; 84425; 84484; 85025; 85651; 86140; 93005; 93306; 93880; 96374; 97161; 99285; A9270; G0378; J2470

== ENCOUNTER → 2024-11-20 07:46 | Outpatient (BNVA) | payer MEDICARE, OTHER, SELFPAY | PROVIDERS: PCP Family Medicine; Referring Provider Family Medicine; Visit Provider Psychiatry & Neurology Neurology | DX: R56.9 Unspecified convulsions; R55 Syncope and collapse | CPT/HCPCS: 99203 ==

== ENCOUNTER 2024-11-22 07:11 | Outpatient (CLI) | payer MEDICARE, OTHER, SELFPAY ==
--- NOTE | 2024-11-22 07:15 | MR_ITS ---
WS: [id number] MRI BRAIN WITH AND WITHOUT CONTRAST HISTORY: R27.9 - Unspecified lack of coordination COMPARISON: CT head 11/17/2024 TECHNIQUE: Multiplanar imaging performed through the brain with MultiHance 20 ml's IV. No acute infarcts are seen. Massey-white matter differentiation is well preserved. Mild volume loss and atrophy in the cerebrum and cerebellum. Partially empty sella turcica. No susceptibility artifacts or prior lacunar infarcts. Mild hippocampal atrophy. Ventricles and extra-axial spaces are normal. Visualized posterior fossa and brainstem are also normal. Postcontrast images are negative for masses or vascular malformations. Tortuous, ectatic distal verte bral and basilar arteries. Dural venous sinuses are normal. Paranasal sinuses: Well aerated with no significant disease. Mastoid air cells: Normal. Calvarium and scalp: Normal. MR/MR head wo/w con [id number] IMPRESSION: 1. No acute infarct or hemorrhage. Normal diffusion imaging. 2. Mild volume loss and atrophy in the cerebrum and cerebellum. 3. Mild hippocampal atrophy. 4. No mass or vascular malformations. 5. No significant small vessel disease and no prior chronic infarct.
== END 2024-11-22 07:12 | disposition home or self-care (01) ==
LOC: RAD 07:13
PROVIDERS: PCP Family Medicine; Visit Provider Psychiatry & Neurology Neurology
DX: R27.9 Unspecified lack of coordination (principal); R26.89 Other abnormalities of gait and mobility; G31.89 Other specified degenerative diseases of nervous system; R93.0 Abnormal findings on diagnostic imaging of skull and head, not elsewhere classified; I77.1 Stricture of artery
CPT/HCPCS: 70553

== ENCOUNTER → 2024-12-03 15:00 | Outpatient (BNVA) | payer MEDICARE, OTHER, SELFPAY | PROVIDERS: PCP Family Medicine; Visit Provider Internal Medicine Cardiovascular Disease | DX: R55 Syncope and collapse (principal) | CPT/HCPCS: 93229 ==

== ENCOUNTER → 2025-02-28 07:35 | Outpatient (BNVA) | payer MEDICARE, OTHER, SELFPAY | PROVIDERS: PCP Family Medicine; Referring Provider Psychiatry & Neurology Neurology; Visit Provider Psychiatry & Neurology Neurology | DX: R56.9 Unspecified convulsions (principal) | CPT/HCPCS: 95813 ==

== ENCOUNTER 2025-07-08 10:42 | Outpatient (CLI) | payer MEDICARE, OTHER, SELFPAY ==
--- NOTE | 2025-07-08 10:51 | XR_ITS ---
WS: [id number] XR knee RT 3V* [id number] REASON FOR EXAM: M17.0 - Bilateral primary osteoarthritis of knee FINDINGS: No fracture or focal bone lesion. Moderate narrowing of the medial knee joint space with mild to moderate subchondral sclerosis and mild osteophytosis. Mild medial shift of the femur. Lateral joint space is intact with mild subchondral sclerosis and marginal osteophytosis. Mild narrowing of the patellofemoral joint space with mild to moderate subchondral sclerosis and osteophytosis. XR/XR knee RT 3V* [id number] IMPRESSION: Moderate osteoarthritis of the right knee as above.
--- NOTE | 2025-07-08 10:51 | XR_ITS ---
WS: [id number] XR knee LT 3V* [id number] REASON FOR EXAM: M17.0 - Bilateral primary osteoarthritis of knee FINDINGS: Trace joint effusion. No fracture or focal bone lesion. Moderate narrowing of the medial knee joint space with moderate subchondral sclerosis and mild osteophytosis. Lateral knee joint space is intact and relatively well preserved with minimal subchondral sclerosis and mild marginal osteophytosis. Patellofemoral joint space is intact with mild to moderate subchondral sclerosis and osteophytosis. XR/XR knee LT 3V* [id number] IMPRESSION: Mild to moderate osteoarthritis as above.
== END 2025-07-08 10:43 | disposition home or self-care (01) ==
LOC: RAD 10:43
PROVIDERS: PCP Family Medicine; Visit Provider Family Medicine
DX: M17.12 Unilateral primary osteoarthritis, left knee (principal); M22.2X2 Patellofemoral disorders, left knee
CPT/HCPCS: 73562